=== PATIENT | female | born 1960 | race Caucasian/White ===

== ENCOUNTER 2024-11-21 02:26 | Outpatient (CLI) | payer BC, SELFPAY ==
--- NOTE | 2024-11-21 08:00 | DI.RAD_ITS ---
Exam(s) XR FOOT RT COMPLETE EXAM: XR FOOT RT COMPLETE CLINICAL HISTORY: Right foot pain,M79.671. TECHNIQUE: 2D digital imaging was performed. Three views. COMPARISON: No exams were available for comparison FINDINGS: BONES: No acute fracture is present. A screw is noted in the 5th metatarsal. There is an old healed fracture deformity at the proximal 4th meta tarsal. No bony destructive lesion is seen. There is a prominent plantar calcaneal spur. JOINTS: No dislocation present. Minimal degenerative changes. SOFT TISSUE: Normal. IMPRESSION: Prominent plantar calcaneal spur. All 4th and 5th metatarsal fractures. DATA REPOSITORY: RADIATION DOSE DELIVERED:
--- NOTE | 2024-11-21 08:00 | DI.RAD_ITS ---
Exam(s) XR FOOT LT COMPLETE EXAM: XR FOOT LT COMPLETE CLINICAL HISTORY: Left foot pain,M69.672. TECHNIQUE: 2D digital imaging was performed. Three views. COMPARISON: CR XR FOOT RT COMPLETE from 11/21/2024 FINDINGS: BONES: No acute fracture is present. No bony destructive lesion is seen. There is a prominent plant ar calcaneal spur. There is small enthesophyte at the Achilles insertion. JOINTS: No dislocation present. There are degenerative changes at the 2nd and 3rd tarsal metatarsal joints. There hammertoe deformities of the 2nd through 4th toes. SOFT TISSUE: Normal. IMPRESSION: Prominent heel spur. Hammertoe deformities. DATA REPOSITORY: RADIATION DOSE DELIVERED:
== END 2024-11-21 02:46 ==
LOC: DI 02:26
PROVIDERS: Visit Provider Podiatrist
DX: M77.32 Calcaneal spur, left foot (principal); M77.31 Calcaneal spur, right foot
CPT/HCPCS: 73630